=== PATIENT | male | born 1965 | race Caucasian/White ===

== ENCOUNTER 2022-08-14 22:41 | Emergency (ER) | payer OTHER, MEDICAID ==
[~2022-08-14] VITALS: Ht 185.4 cm; Wt 85.7 kg
--- NOTE | 2022-08-14 22:41 | NUR ---
PT BIB [facility], PREBOOK. TAKEN TO ER CHAIR
[2022-08-14 23:04] VITALS: BP 117/80; PULSE 93; RESP 14; TEMP 97.8; O2SAT 96
[2022-08-14] MEDS ORDERED: BACITRACIN OINT 500 UNITS/GM PKT TP ONE (23:15)
[2022-08-14 23:23] VITALS: BP 138/78; PULSE 74; RESP 16; TEMP 98.2
--- NOTE | 2022-08-14 23:23 | NUR ---
Patient discharged with v/s stable. Written and verbal after care instructions given and explained. Patient verbalized understanding. Ambulatory with steady gait. All questions addressed prior to discharge. Advised to follow up with PMD.
[2022-08-14 23:27] VITALS: O2SAT 96
== END 2022-08-14 23:23 ==
LOC: MED 22:41
DX: S60.811A Abrasion of right wrist, initial encounter (principal); Z02.89 Encounter for other administrative examinations; V89.2XXA Person injured in unspecified motor-vehicle accident, traffic, initial encounter; Y93.89 Activity, other specified; Y92.89 Other specified places as the place of occurrence of the external cause; Y99.8 Other external cause status
CPT/HCPCS: 99283